=== PATIENT | male | born 1950 | race Caucasian/White ===

== ENCOUNTER 2018-06-07 18:26 | Emergency (ER) | payer MEDICARE, SELFPAY ==
[2018-06-07 18:31] VITALS: BP 149/96; PULSE 81; RESP 16; TEMP 36.8; O2SAT 98; BMI 22.7
--- NOTE | 2018-06-07 18:44 | DI.RAD.S_ITS ---
PROCEDURE: XR CHEST 1V INDICATIONS: chest pain TECHNIQUE: One view of the chest was acquired. COMPARISON: None. FINDINGS: Surgical changes and devices: None. Lungs and pleura: No pleural effusions or pneumothorax. Lungs are clear. Mediastinum: Mediastinal contours appear normal. Heart size is normal. Bones and chest wall: No suspicious bony lesions. Overlying soft tissues appear unremarkable. IMPRESSION: No acute cardiopulmonary disease. Dictated by: Pavel Briceno M.D. on 06/07/2018 at 19:02 Approved by: Pavel Briceno M.D. on 06/07/2018 at 19:04
[2018-06-07] MEDS: ASPIRIN 81 MG TAB 324 MG PO (18:45)
[2018-06-07 18:59] LABS: Add Manual Diff / Slide Review NO; Basophils Percent Auto 0.4 % (0-2); Eosinophils Percent Auto 1.5 % (2-4); Hematocrit 42.9 % (41-53); Hemoglobin 14.5 g/dL (13.5-17.5); Lymphocytes Percent Auto 18.3 % (25-40); Mean Corpuscular HGB Conc 33.7 % (30-36); Mean Corpuscular Hemoglobin 30.8 PG (26-34); Mean Corpuscular Volume 91.2 fL (80-100); Monocytes Percent Auto 9.8 % (3-14); Neutrophils Absolute Auto 6100 /uL (3000-5900); Platelet Count 294 X10^3/uL (150-400); Red Blood Cell Count 4.71 X10^6/uL (4.5-5.9); Red Cell Distribution Width 13.6 % (11.6-14.8); White Blood Cell Count 8.7 X10^3/uL (4.5-11.0)
[2018-06-07 19:09] LABS: Alanine Aminotransferase 26 IU/L (21-72); Albumin 5.4 g/dL (3.5-5.0); Albumin Globulin Ratio 1.6 (1.0-2.8); Alkaline Phosphatase 55 U/L (38-126); Aspartate Aminotransferase 30 IU/L (17-59); Bilirubin Total 1.1 mg/dL (0.2-1.3); Blood Urea Nitrogen 27 mg/dL (9-20); Calcium 10.3 mg/dL (8.4-10.2); Carbon Dioxide 30 mmol/L (22-32); Chloride 96 mmol/L (98-107); Creatine Kinase 52 U/L (55-170); Estimated Glomerular Filt Rate > 60.0 mL/min (>60); Globulin 3.4 g/dL (1.7-4.1); Glucose 102 mg/dL (80-110); HEMOLYSIS 24 (0-50); Lipase 113 U/L (23-300); Sodium 139 mmol/L (137-145); Total Protein 8.8 g/dL (6.3-8.2)
[2018-06-07 19:10] LABS: Prothrombin Time 10.3 SECONDS (10.1-12.7)
[2018-06-07 19:13] LABS: PTT Partial Thromboplastin Tim 30 SECONDS (26.4-36.2)
--- NOTE | 2018-06-07 19:14 | ED.CHESTPAIN ---
HPI - Chest Pain General Chief Complaint: Chest Pain Stated Complaint: HEART BURN DIARRHEA DIZZY CHEST DISCOMFORT Time Seen by Provider: 06/07/18 19:14 Source: patient Mode of arrival: ambulatory Limitations: no limitations History of Present Illness HPI narrative: The patient has a history of diarrhea. He developed diarrhea this morning, and has had persistent diarrhea throughout the day. He has not seen blood in the diarrhea. He has no fever, chills or sweats. He has had no emesis. He has epigastric abdominal pain. He also has GERD. He takes omeprazole and ranitidine for the GERD symptoms. He has no associated dyspnea, or pain radiating to the neck, back or shoulder. He has no history of CAD. He has had colonoscopy to evaluate the diarrhea. He has no history of inflammatory bowel disease or diverticulitis. His last meal was prepared by his brother last night, there is no obvious dietary contribution to the diarrhea. He has had no recent travel. Related Data Previous Rx's Medication Instructions Recorded ondansetron [Zofran ODT] 4 mg PO Q4H PRN #15 tab 06/07/18 Allergies Allergy/AdvReac Type Severity Reaction Status Date / Time No Known Drug Allergies Allergy Verified 06/07/18 18:30 Review of Systems Review of Systems All systems reviewed & are unremarkable except as noted in HPI and below Constitutional Denies chills, Denies fever(s), Denies lethargy and Denies weakness ENT Ears, Nose, Mouth, and Throat: Reports dizziness, Denies neck pain, Denies disequilibrium and Denies sore throat Cardiovascular Denies chest pain, Denies irregular heart rhythm, Denies lightheadedness, Denies palpitations, Denies dyspnea, Denies dyspnea on exertion and Denies orthopnea Respiratory Denies cough, Denies dyspnea, Denies dyspnea on exertion and Denies wheezing Gastrointestinal Gastrointestinal: Reports abdominal pain (Epigastric), Denies melena, Denies bloating, Denies hematochezia, Reports change in bowel habits, Reports diarrhea, Denies nausea and Denies vomiting Genitourinary Reports other (No urinary symptoms) Musculoskeletal Denies neck pain and Reports other (No weakness) Integumentary/Breasts Denies pruritus, Denies erythema, Denies rash and Denies wounds Neurologic Denies abnormal speech, Reports dizziness, Denies disequilibrium and Denies weakness Endocrine Denies palpitations Allergic/Immunologic Denies wheezing PFSH Medical History Diarrhea (Acute) GERD (gastroesophageal reflux disease) (Acute) Social History Smoking Status: Current every day smoker Exam Initial Vital Signs Initial Vital Signs: Vital Signs Temperature 98.2 F 06/07/18 18:31 Pulse Rate 81 06/07/18 18:31 Respiratory Rate 16 06/07/18 18:31 Blood Pressure 149/96 H 06/07/18 18:31 Pulse Oximetry 98 06/07/18 18:31 Const General: cooperative, well developed, well groomed and No acute distress Nutritional Appearance: well nourished Orientation: alert, awake, oriented x3 and not confused HENMS Throat: posterior oropharynx normal Eyes Other: Prosthetic right eye Neck Neck: normal visual inspection, trachea midline, No lymphadenopathy, No midline deformity and No JVD Lymphatic: No lymphedema Resp Effort & Inspection: normal respiratory effort, able to speak in complete sentences, no respiratory distress and no use of accessory muscles Auscultation: clear to auscultation bilaterally, no rales, no rhonchi and no wheezes Cardio Rate: regular rate Rhythm: regular rhythm Heart Sounds: no click, no gallops, no murmurs and no rubs Pulses: normal peripheral pulses GI Inspection: non-distended Palpation: soft, no hepatosplenomegaly, No pulsatile mass and tender ( mild epigastric tenderness without distention, guarding or rebound.) Auscultation: normal bowel sounds Back/Spine/Pelvis Back: No CVA tenderness Skin General: no rashes or lesions noted Neuro General: alert, oriented x3 and no focal motor deficits Course Orders Ordered: ED Orders 06/07/18 18:44 XR chest 1V Stat EKG-12 Lead Stat 06/07/18 18:52 Complete Blood Count AUTO DIFF Stat Comprehensive Metabolic Panel Stat Lipase Stat Partial Thromboplastin Time Stat Prothrombin Time INR Stat Troponin & CK Cardiac Panel Stat Discontinued Medications Aspirin (Aspirin Chew) 324 mg PO NOW ONE Stop: 06/07/18 18:45 Last Admin: 06/07/18 18:45 Dose: 324 mg Al Hydrox/Mg Hydrox/Simethicone 20 ml/ Lidocaine HCl 15 ml 0 ml PO NOW ONE Stop: 06/07/18 21:11 Last Admin: 06/07/18 21:22 Dose: 15 ml Al Hydrox/Mg Hydrox/Simethicone 20 ml/ Lidocaine HCl 15 ml 0 ml PO NOW ONE Stop: 06/07/18 22:43 Last Admin: 06/07/18 22:47 Dose: 35 ml Ondansetron HCl (Zofran) 4 mg IV NOW ONE Stop: 06/07/18 21:18 Last Admin: 06/07/18 21:18 Dose: 4 mg Ranitidine HCl (Zantac) 150 mg PO NOW ONE Stop: 06/07/18 22:43 Last Admin: 06/07/18 22:47 Dose: 150 mg Vital Signs - 8 hr 06/07/18 18:31 06/07/18 19:59 06/07/18 21:26 Temperature 98.2 F Pulse Rate 81 66 78 Respiratory Rate 16 18 16 Blood Pressure 149/96 H Blood Pressure [Left Arm] 155/83 H 146/91 H Pulse Oximetry 98 97 94 06/07/18 22:25 Temperature Pulse Rate 83 Respiratory Rate 15 Blood Pressure Blood Pressure [Left Arm] 139/86 H Pulse Oximetry 98 MDM - Chest Pain Lab Data Attestation: I reviewed the patient's lab results. Result diagrams: 06/07/18 18:52 06/07/18 18:52 Lab Results 06/07/18 06/07/18 06/07/18 Range/Units 18:52 18:52 18:52 WBC 8.7 (4.5-11.0) X10^3/uL RBC 4.71 (4.5-5.9) X10^6/uL Hgb 14.5 (13.5-17.5) g/dL Hct 42.9 (41-53) % MCV 91.2 (80-100) fL MCH 30.8 (26-34) PG MCHC 33.7 (30-36) % RDW 13.6 (11.6-14.8) % Plt Count 294 (150-400) X10^3/uL Neut % (Auto) 70.0 (50-75) % Lymph % (Auto) 18.3 L (25-40) % Fisher % (Auto) 9.8 (3-14) % Eos % (Auto) 1.5 L (2-4) % Baso % (Auto) 0.4 (0-2) % Neut # (Auto) 6100 H (6263-0125) /uL PT 10.3 (10.1-12.7) SECONDS INR 1.0 (0.9-1.3) APTT 30 (26.4-36.2) SECONDS Sodium 139 (137-145) mmol/L Potassium 4.0 (3.4-5.1) mmol/L Chloride 96 L (98-107) mmol/L Carbon Dioxide 30 (22-32) mmol/L BUN 27 H (9-20) mg/dL Creatinine 1.00 (0.66-1.25) mg/dL Estimated GFR > 60.0 (>60) mL/min BUN/Creatinine Ratio 27.0 H (6-22) Glucose 102 (80-110) mg/dL Calcium 10.3 H (8.4-10.2) mg/dL Total Bilirubin 1.1 (0.2-1.3) mg/dL AST 30 (17-59) IU/L ALT 26 (21-72) IU/L Alkaline Phosphatase 55 (38-126) U/L Total Creatine Kinase 52 L (55-170) U/L Troponin I < 0.012 (0.01-0.034) ng/mL Total Protein 8.8 H (6.3-8.2) g/dL Albumin 5.4 H (3.5-5.0) g/dL Globulin 3.4 (1.7-4.1) g/dL Albumin/Globulin Ratio 1.6 (1.0-2.8) Lipase 113 (23-300) U/L Imaging Data Chest x-ray: Radiologist's impression: Normal ECG Data Attestation: I personally reviewed and interpreted this ECG as follows: ( Normal sinus rhythm rate [address] T wave changes. No ectopy. Normal intervals.) MDM Narrative Medical decision making narrative: The patient developed vomiting after his initial presentation. The symptoms in epigastric discomfort have resolved with a GI cocktail and Zofran. He is on a regimen of rotating doses of Zantac and omeprazole. I gave him his p.m. dose of Zantac. He will be discharged on Zofran. Discharge Plan Departure Patient Disposition: Home, Self-Care Clinical Impression: Abdominal pain, vomiting, and diarrhea Instructions: Diarrhea Activity Restrictions/Additional Instructions: Zofran every 4 hr to help control nausea. Try to resume a regular diet as soon as tolerated, be sure your drinking plenty of water. Follow up with her mushroom laborer as planned, return to the ER if necessary. Prescriptions: New ondansetron [Zofran ODT] 4 mg tablet,disintegrating 4 mg PO Q4H PRN (Reason: nausea and vomiting) Qty: 15 RF: 0
[2018-06-07 19:27] LABS: Troponin I < 0.012 ng/mL (0.01-0.034)
[2018-06-07 19:59] VITALS: BP 155/83; PULSE 66; RESP 18; O2SAT 97
[2018-06-07] MEDS: ONDANSETRON 4 MG/2 ML INJ IV (21:18)
[2018-06-07] MEDS: MAG HYDROX/ALUMINUM/SIMETH SUS 20 ML, LIDOCAINE VISCOUS 2% 15 ML PO ×2 (21:22→22:47)
[2018-06-07 21:26] VITALS: BP 146/91; PULSE 78; RESP 16; O2SAT 94
--- NOTE | 2018-06-07 21:26 | PC.NURSE ---
Pt vomiting. C/O GERD-type pain. Dr Martin notified, orders received for repeat EKG, GI cocktail, and zofran. Orders now complete. Pt reports nausea imroved. Will CTM.
[2018-06-07 22:25] VITALS: BP 139/86; PULSE 83; RESP 15; O2SAT 98
[2018-06-07] MEDS: ONDANSETRON 4 MG ODT PREPACK 1 BOTTLE MISC (23:08)
[2018-06-07 23:15] VITALS: BP 122/78; PULSE 72; RESP 15; TEMP 37.1; O2SAT 97
--- NOTE | 2018-06-09 13:41 | PC.NURSE ---
follow up phone call: Pt states he still feels weak but is taking po fluids and food. Has appt w/ GI next week. States he feels 'a whole lot better than the other night. Encouraged to f/u as needed and indicated and return for any difficulty or concerns.
== END 2018-06-07 23:16 | disposition home or self-care (01) ==
PROVIDERS: Emergency Provider Emergency Medicine
DX: R10.9 Unspecified abdominal pain (principal); R11.10 Vomiting, unspecified; R19.7 Diarrhea, unspecified
CPT/HCPCS: 36591; 71045; 80053; 82550; 82553; 83690; 84484; 85025; 85610; 85730; 93005; 93010; 96374; 99283; 99285; J2405